=== PATIENT | female | born 1955 | race Caucasian/White ===

== ENCOUNTER 2024-12-15 15:28 | Outpatient (CLI) | payer MEDICARE, SELFPAY ==
--- NOTE | 2024-12-15 15:30 | CT_ITS ---
FINAL REPORT CLINICAL HISTORY: chronic sinusitis FINDINGS: The paranasal sinuses are well aerated. There is no fracture. There are no air-fluid levels. Ostiomeatal units are patent. Mastoid air cells are well aerated. IMPRESSION: Unremarkable. Reviewed, Interpreted and Dictated by Jesse Maldonado MD Transcribed by Heide Lockhart Authenticated and [facility]
--- OUTSIDE RECORDS SUMMARY | 2024-12-15 15:30 | XMS_ITS | Clinical Summary ---
Author Organization [facility] Address [address] [place] [address] Phone Care Team Providers Care Fur Cleaner Name Role Phone LISANDRA RIVERO MD Unavailable [phone] Stephenie MACIAS, Srinivas Joya Unavailable [phone] Neo CALIXTO, Roland Betancourt Primary Care Provider [phone] Reason for Visit and Chief Complaint The Chief Complaint is: low back pain Problems Includes: Problems addressed during this encounter and other active Problems Current Visit Onset Date Resolved Date Provider Conditio n Status Lower Back Pain 11/20/2023 Emile Dougherty PA-C A ctive Last Documented On 4 3:29PM ; [facility] Past Visits Onset Date Resolved Date Provider Condition Status Pain in the Left Foot 12/17/2015 Srinivas Casiano DPM Active Last Documented On 6 9:24AM ; [facility] Joint Pain Left Thumb 10/07/2014 Roland blankenship MD Active Last Documented On 5 2:07PM ; [facility] Plan of Treatment Fall Risk Assessment: This patient has been identified as a fall risk. Balance/gait along with postural blood pressure, vision and home fall hazards have been assessed. Medications have been reviewed, and recommendations made with regard to contributing factors for future falls. Plan of care: Consideration of vitamin D supplementation along with balance and strength training with consideration for formal physical therapy has been discussed with the patient. - Last Documented On 11/20/2023 4:03PM ; [facility] Patient was seen by myself Emile Dougherty PA-C. Patient will follow up 6 weeks we will start with some formal physical therapy with this and see how she progresses - Last Documented On 11/20/2023 4:03PM ; [facility] Pending Tests Order Diagnosis Results Due Ordering P guerita Therapy - Physical Therapy Lumbar Low back pain, unspecified 11/20/23 Emile Dougherty PA-C Last Documented On 4 4:03PM ; [facility] Instructions to patient Intervention and counseling on cessation of tobacco use Last Documented On 4 3:31PM ; [facility] Assessments Includes: Assessments from this encounter Findings Lumbar DDD and degenerative scoliosis - Last Documented On 11/20/2023 4:03PM ; [facility] Instructions Includes: Instructions from this encounter Instructions to patient Intervention and counseling on cessation of tobacco use Last Documented On 4 3:31PM ; [facility] Medical Equipment - Implanted Devices Includes: Current Devices No Medical Equipment Recorded Medications Includes: Medications discussed during this encounter and other current Medications Discontinued / Stopped on this date LISANDRA RIVERO MD on 10/09/2023 Buprenorphine HCl-Naloxone H Cl 8-2 MG Sublingual Tablet Sublingual Provider: LISANDRA RIVERO MD Diagnosis: Last Documented On 4 3:30PM By Navya Sol ; [facility] Percocet 7.5-325 MG Tablet Provider: Chelsie Quiroga MD Diagnosis: Last Documented On 4 3:29PM By Navya Sol ; [facility] Percocet 7.5-325 MG Tablet Provider: Prem Casiano DPM Diagnosis: Last Documented On 4 3:29PM By Navya Sol ; [facility] Premarin 0.625 MG Tablet Provider: Diagnosis: Last Documented On 4 3:29PM By Navya Sol ; [facility] Suboxone 8-2 MG Film Provider: Diagnosis: Last Documented On 4 3:29PM By Navya Sol ; [facility] Pravastatin Sodium 40 MG Tablet Provider: Diagnosis: Last Documented On 4 3:29PM By Navya Sol ; [facility] Triamterene-HCTZ 37.5-25 MG Tablet Provid er: Diagnosis: Last Documented On 4 3:29PM By Navya Sol ; [facility] Current Medications (continue as prescribed) Buprenorphine HCl-Naloxone H Cl 8-2 MG Sublingual Tablet Sublingual 11/05/2023 Provider: LISANDRA RIVERO MD Diagnosis: Last Documented On 4 3:30PM By Navya Sol ; [facility] Ibuprofen 800 MG Oral Tablet 10/27/2023 Provider: LISANDRA RIVERO MD Diagnosis: Last Documented On 4 3:30PM By Navya Sol ; [facility] Fluticasone Propionate 50 MC G/ACT Nasal Suspension 10/25/2023 Provider: LISANDRA RIVERO MD Diagnosis: Last Documented On 4 3:30PM By Navya Sol ; [facility] Triamterene-HCTZ 37.5-25 MG Oral Tablet 10/25/2023 P rovider: LISANDRA RIVERO MD Diagnosis: Last Documented On 4 3:30PM By Navya Sol ; [facility] Medications Administered Includes: Administered Medications from this encounter No Administered Medications Recorded Vital Signs Includes: Vital Signs from this encounter Vital Name 11/20/2023 03:30P Height (in) 63 Weight (lb) 120 Body Mass Index 21.3 Body Surface Area 1.6 Pain Level 7 Note: lc Last Documented: On 11/20/2023 3:30PM ; [facility] Results Includes: Results discussed during this encounter No Results Recorded For Specified Dates History of Present Illness Includes: History of Present Illness from this encounter HPI Isadora Baca is a 68 year old female. - Symptoms giving way, grinding resting, lying down makes the pain better standing on feet makes the pain worse. - Allergy list reviewed - Problem list reviewed - Medication list reviewed - Previous history of new onset pain 1974 Injury is not work related or an automotive accident - Patient pain level from 1-10: 7 - Yes, previous treatment. - History of Home Exercise Patient is here today with complaints of lower back pain she has had this problem for many many years it has been worse in the last 3-4 months. It is worse when she is standing or complains of pain in her lower back in the stabbing feeling in her buttocks. She feels like she is kind of shifted to the left also. She denies any leg pain associated with this no bowel or bladder issues with this no previous back surgery she does take ibuprofen which does help Social History Description Last Updated No recent change in diet 11/20/2023 Last Documented On 4 4:03PM ; [facility] Yes, current smoker. 11/20/2023 Last Documented On 4 4:03PM ; [facility] Exercising regularly 01/10/2017 Last Documented On 4 3:30PM ; [facility] Caffeine use 12/17/2015 Last Documented On 4 3:30PM ; [facility] No recent change in diet 12/17/2015 Last Documented On 4 3:30PM ; [facility] Tobacco use 10/07/2014 Last Documented On 4 3:30PM ; [facility] Current smoker 10/07/2014 Last Documented On 4 3:30PM ; [facility] Not using alcohol 10/07/2014 Last Documented On 4 3:30PM ; [facility] Not using drugs 10/07/2014 Last Documented On 4 3:30PM ; [facility] Smoking Status Unknown Procedures and Surgical History Includes: Procedures from this encounter Procedures Code Diagnosis Performing Provider Service L ocation Service Date intervention and counseling on cessation of tobacco use 4000F Last Documented On 4 3:31PM ; [facility] use of tobacco assessment performed 1000F Last Documented On 4 3:31PM ; [facility] patient screened for future fall risk: documentation of any fall with injury in past year 1100F Last Documented On 4 3:31PM ; [facility] review of medications documented 1160F Last Documented On 4 3:31PM ; [facility] brace Last Documented On 4 3:40PM ; [facility] Surgical History Last Updated History of hysterectomy 10/07/2014 Last Documented On 4 3:30PM ; [facility] Medical History Includes: Medical History addressed during this encounter Description Last Updated Arthritic joint problems 01/10/2017 Last Documented On 4 3:30PM ; [facility] Pulmonary disease 01/10/2017 Last Documented On 4 3:30PM ; [facility] macular hole ~tonsilectomy ~cataract ~br east reduction 12/17/2015 Last Documented On 4 3:30PM ; [facility] Gallbladder disease 12/17/2015 Last Documented On 4 3:30PM ; [facility] History of diverticulitis of colon 10/07 Last Documented On 4 3:30PM ; [facility] Intermittent hypertension 10/07/2014 Last Documented On 4 3:30PM ; [facility] Family History Includes: Family History addressed during this encounter Description Last Updated Maternal history of hypertension /patern al history as well 11/20/2023 Last Documented On 4 3:30PM ; [facility] Maternal history of systemic hypertensio n 11/20/2023 Last Documented On 4 4:03PM ; [facility] Paternal history of family history of ca ncer 11/20/2023 Last Documented On 4 4:03PM ; [facility] Paternal history of family history of ca ncer 11/20/2023 Last Documented On 4 3:30PM ; [facility] Paternal history of family history of he art disease 11/20/2023 Last Documented On 4 4:03PM ; [facility] Paternal history of family history of he art disease 11/20/2023 Last Documented On 4 3:30PM ; [facility] Paternal history of rheumatoid arthritis 11/20/2023 Last Documented On 4 3:30PM ; [facility] Paternal history of rheumatoid arthritis 11/20/2023 Last Documented On 4 4:03PM ; [facility] non-contributory ~ ~arthritis ~asthma ~k idney disease ~stroke 10/07/2014 Last Documented On 4 3:30PM ; [facility] Review of Systems Includes: Review of Systems from this encounter Systemic: Not feeling tired, no recent weight loss, and no recent weight gain. Head: No headache. Sinus pain. Eyes: No vision problems. Cataracts. No Glasses/Contacts and no Glaucoma. Otolaryngeal: No hearing loss and no tinnitus. Cardiovascular: No chest pain or discomfort, no palpitations, no Hypertension, and no High Cholesterol. Pulmonary: No daytime asthma symptoms and no chronic cough. No wheezing. Gastrointestinal: No heartburn and no abdominal pain. No Indigestion, no Acid Reflux, no Peptic Ulcer, no GI Stomach Bleed, and no Ulcers. Endocrine: No hot flashes, no muscle weakness, no Diabetes, no Hypothyroid, and no Hyperthyroid. Hematologic: Easy bleeding. No tendency for easy bruising and no Anemia. Musculoskeletal: Arthritis and lower back pain. No soft tissue swelling and no localized joint pain. Neurological: No dizziness, no convulsions, and no numbness. Psychological: No anxiety, no emotional lability, no depression, and no insomnia. Not crying for no reason. Skin: No dry skin. No Ulcers, no Scars, and no rash. Allergic and Immunologic: No complaint of seasonal allergic reaction. Mental Status Includes: Mental Status from this encounter Description No anxiety Functional Status Includes: Functional Status from this encounter No Functional Status Recorded Physical Exam Includes: Physical Exam from this encounter Allergies Includes: Active Allergies No Known Allergies Encounters Encounter Provider Location Date Check-In Time Check-Out Time Diagnosis Non Physician Specified Emile Dougherty PA-C [facility] 11/20/19 24 3:21PM 3:53PM Insurance Includes: Active Insurance Policies Plan Name Member ID Group # Subscriber Relationship Effect jay Dates 1 - [facility] [id number] Isadora dia Clinical Notes Includes: Clinical Notes from this encounter * Progress note Date Encounter Last Documented by 11/20/2023 Non Physician Specified Last doc umented on 11/20/2023; 4:03 PM, Emile Dougherty PA-C; [facility] Active Problems & Conditions - Joint Pain Left Thumb - Lower Back Pain - Pain in the Left Foot Chief Complaint The Chief Complaint is: Low back pain. Referred Here Referred by PCP. History of Present Illness Isadora Baca is a 68 year old female. - Symptoms giving way, grinding resting, lying down makes the pain better standing on feet makes the pain worse. - Allergy list reviewed - Problem list reviewed - Medication list reviewed - Previous history of new onset pain 1974 Injury is not work related or an automotive accident - Patient pain level from 1-10: 7 - Yes, previous treatment. - History of Home Exercise Patient is here today with complaints of lower back pain she has had this problem for many many years it has been worse in the last 3-4 months. It is worse when she is standing or complains of pain in her lower back in the stabbing feeling in her buttocks. She feels like she is kind of shifted to the left also. She denies any leg pain associated with this no bowel or bladder issues with this no previous back surgery she does take ibuprofen which does help Current Medication - Buprenorphine HCl-Naloxone HCl 8-2 MG Sublingual Tablet Sublingual 28 days, 0 refills - Fluticasone Propionate 50 MCG/ACT Nasal Suspension 30 days, 0 refills - Ibuprofen 800 MG Oral Tablet 30 days, 0 refills - Triamterene-HCTZ 37.5-25 MG Oral Tablet 90 days, 0 refills Past Medical/Surgical History Reported: Medical: Gallbladder disease and joint problems arthritic. Pulmonary disease and intermittent hypertension. Diagnoses: Diverticulitis of colon Macular hole tonsilectomy cataract breast reduction. Surgical: - Hysterectomy Social History Yes, current smoker. Current diet: No recent change in diet. No recent change in diet. Caffeine use: Caffeine use. Tobacco use: Current smoker. Alcohol: Not using alcohol. Drug Use: Not using drugs. Habits: Exercising regularly. Allergies - No Known Allergies Family History Non-contributory arthritis asthma kidney disease stroke Paternal: Cancer Cancer Heart disease Heart disease Rheumatoid arthritis Rheumatoid arthritis Maternal: Systemic hypertension Systemic hypertension /paternal history as well Review Of Systems Systemic: Not feeling tired, no recent weight loss, and no recent weight gain. Head: No headache. Sinus pain. Eyes: No vision problems. Cataracts. No Glasses/Contacts and no Glaucoma. Otolaryngeal: No hearing loss and no tinnitus. Cardiovascular: No chest pain or discomfort, no palpitations, no Hypertension, and no High Cholesterol. Pulmonary: No daytime asthma symptoms and no chronic cough. No wheezing. Gastrointestinal: No heartburn and no abdominal pain. No Indigestion, no Acid Reflux, no Peptic Ulcer, no GI Stomach Bleed, and no Ulcers. Endocrine: No hot flashes, no muscle weakness, no Diabetes, no Hypothyroid, and no Hyperthyroid. Hematologic: Easy bleeding. No tendency for easy bruising and no Anemia. Musculoskeletal: Arthritis and lower back pain. No soft tissue swelling and no localized joint pain. Neurological: No dizziness, no convulsions, and no numbness. Psychological: No anxiety, no emotional lability, no depression, and no insomnia. Not crying for no reason. Skin: No dry skin. No Ulcers, no Scars, and no rash. Allergic and Immunologic: No complaint of seasonal allergic reaction. Physical Findings - Vitals taken 11/20/2023 03:30 pm lc Height 63 in Weight 120 lbs Body Mass Index 21.3 kg/m2 Body Surface Area 1.6 m2 Pain Level 7 She and standing he has a little bit shifted to the left She can not quite bend over and touch her toes She is 5/5 EHL gastrocs quadriceps tibialis anterior strength bilaterally Negative straight leg raise bilaterally 2+ Achilles and patellar reflexes bilaterally Tests Two views lumbar spine shows multilevel degenerative changes and degenerative scoliosis November 20, 2023 Assessment Lumbar DDD and degenerative scoliosis Previous Tests Basic Management Procedures And Services: - Brace Available previous imaging studies were reviewed Available previous history reviewed Therapy - Intervention and counseling on cessation of tobacco use. Plan StartCited - Low back pain, unspecified Therapy/Physical Therapy: Lumbar Instructions: See PT order attached EndCited Fall Risk Assessment: This patient has been identified as a fall risk. Balance/gait along with postural blood pressure, vision and home fall hazards have been assessed. Medications have been reviewed, and recommendations made with regard to contributing factors for future falls. Plan of care: Consideration of vitamin D supplementation along with balance and strength training with consideration for formal physical therapy has been discussed with the patient. Patient was seen by myself Emile Dougherty PA-C. Patient will follow up 6 weeks we will start with some formal physical therapy with this and see how she progresses Notes This dictation was done with voice recognition software and may contain errors and omissions. Practice Management Use of tobacco assessment performed and patient screened for future fall risk documentation of any fall with injury in past year Review of medications documented. Care Team - LISANDRA RIVERO MD
--- OUTSIDE RECORDS SUMMARY | 2024-12-15 15:30 | XMS_ITS ---
Care Plan - [facility] Created on: December 15, 2024 Isadora Baca : 1955 Sex: Female Author Organization [facility] Address [address] [place] [address] Phone Care Team Providers Care Culinary Specialist Name Role Phone JOSEFA CALIXTO, LISANDRA Betancourt Unavailable [phone] Srinivas Casiano DPM Unavailable [phone] Neo CALIXTO, Roland Betancourt Primary Care Provider [phone]
--- OUTSIDE RECORDS SUMMARY | 2024-12-15 15:31 | XMS_ITS ---
Author Organization [facility] Address [address] [place] [address] Phone Care Team Providers Care Building Maintenance Technician Name Role Phone JOSEFA CALIXTO, LISANDRA Betancourt Unavailable [phone] Stephenie MACIAS, Srinivas Joya Unavailable [phone] Neo CALIXTO, Roland Betancourt Primary Care Provider [phone] Problems Includes: Active, inactive, and resolved Problems All Visits Onset Date Resolved Date Provider Condition S tatus Lower Back Pain 11/20/2023 Emile Dougherty PA-C A ctive Last Documented On 4 3:29PM ; [facility] Pain in the Left Foot 12/17/2015 Srinivas Casiano DPM Active Last Documented On 6 9:24AM ; [facility] Joint Pain Left Thumb 10/07/2014 Roland blankenship MD Active Last Documented On 5 2:07PM ; [facility] Plan of Treatment Pending Tests Order Diagnosis Results Due Ordering P rovider Therapy - Physical Therapy Lumbar Low back pain, unspecified 11/20/23 Emile Dougherty PA-C Last Documented On 4 4:03PM ; [facility] Instructions to patient Intervention and counseling on cessation of tobacco use Last Documented On 4 3:31PM ; [facility] Instructions for patient to see pcp for BP Last Documented On 7 11:47AM ; [facility] Intervention and counseling on cessation of tobacco use Last Documented On 7 11:47AM ; [facility] Instructions for patient to see pcp for BP Last Documented On 7 11:27AM ; [facility] Intervention and counseling on cessation of tobacco use Last Documented On 7 11:26AM ; [facility] Intervention and counseling on cessation of tobacco use Last Documented On 7 10:48AM ; [facility] Intervention and counseling on cessation of tobacco use Last Documented On 7 10:41AM ; [facility] Intervention and counseling on cessation of tobacco use Last Documented On 7 9:44AM ; [facility] Intervention and counseling on cessation of tobacco use Last Documented On 7 1:24PM ; [facility] Instructions for patient see pcp about high bp Last Documented On 6 11:04AM ; [facility] Intervention and counseling on cessation of tobacco use Last Documented On 6 11:04AM ; [facility] Instructions for patient see pcp about high bp Last Documented On 6 9:31AM ; [facility] Intervention and counseling on cessation of tobacco use Last Documented On 6 9:31AM ; [facility] Instructions for patient con sult pcp Last Documented On 6 10:47AM ; [facility] Intervention and counseling on cessation of tobacco use Last Documented On 6 10:48AM ; [facility] Instructions for patient con sult pcp Last Documented On 5 2:15PM ; [facility] Intervention and counseling on cessation of tobacco use Last Documented On 5 2:16PM ; [facility] Education and Decision Aids were provided during visit for: Health seminar on smoking ce ssation Last Documented On 7 11:47AM ; [facility] Health seminar on smoking ce ssation Last Documented On 7 11:27AM ; [facility] Health seminar on smoking ce ssation Last Documented On 7 10:41AM ; [facility] Health seminar on smoking ce ssation Last Documented On 7 9:44AM ; [facility] Health seminar on smoking ce ssation Last Documented On 7 1:24PM ; [facility] Health seminar on smoking ce ssation Last Documented On 6 11:04AM ; [facility] Health seminar on smoking ce ssation Last Documented On 6 9:31AM ; [facility] Education and counseling Last Documented On 6 10:47AM ; [facility] Health seminar on smoking ce ssation Last Documented On 6 10:48AM ; [facility] Patient will stop smoking Last Documented On 6 10:47AM ; [facility] Education and counseling Last Documented On 5 2:15PM ; [facility] Patient will stop smoking Last Documented On 5 2:15PM ; [facility] Assessments Includes: Assessments for all patient encounters No Assessments Recorded Instructions Includes: Instructions for all patient encounters Instructions to patient Intervention and counseling on cessation of tobacco use Last Documented On 4 3:31PM ; [facility] Instructions for patient to see pcp for BP Last Documented On 7 11:47AM ; [facility] Intervention and counseling on cessation of tobacco use Last Documented On 7 11:47AM ; [facility] Instructions for patient to see pcp for BP Last Documented On 7 11:27AM ; [facility] Intervention and counseling on cessation of tobacco use Last Documented On 7 11:26AM ; [facility] Intervention and counseling on cessation of tobacco use Last Documented On 7 10:48AM ; [facility] Intervention and counseling on cessation of tobacco use Last Documented On 7 10:41AM ; [facility] Intervention and counseling on cessation of tobacco use Last Documented On 7 9:44AM ; [facility] Intervention and counseling on cessation of tobacco use Last Documented On 7 1:24PM ; [facility] Instructions for patient see pcp about high bp Last Documented On 6 11:04AM ; [facility] Intervention and counseling on cessation of tobacco use Last Documented On 6 11:04AM ; [facility] Instructions for patient see pcp about high bp Last Documented On 6 9:31AM ; [facility] Intervention and counseling on cessation of tobacco use Last Documented On 6 9:31AM ; [facility] Instructions for patient con sult pcp Last Documented On 6 10:47AM ; [facility] Intervention and counseling on cessation of tobacco use Last Documented On 6 10:48AM ; [facility] Instructions for patient con sult pcp Last Documented On 5 2:15PM ; [facility] Intervention and counseling on cessation of tobacco use Last Documented On 5 2:16PM ; [facility] Education and Decision Aids were provided during visit for: Health seminar on smoking ce ssation Last Documented On 7 11:47AM ; [facility] Health seminar on smoking ce ssation Last Documented On 7 11:27AM ; [facility] Health seminar on smoking ce ssation Last Documented On 7 10:41AM ; [facility] Health seminar on smoking ce ssation Last Documented On 7 9:44AM ; [facility] Health seminar on smoking ce ssation Last Documented On 7 1:24PM ; [facility] Health seminar on smoking ce ssation Last Documented On 6 11:04AM ; [facility] Health seminar on smoking ce ssation Last Documented On 6 9:31AM ; [facility] Education and counseling Last Documented On 6 10:47AM ; [facility] Health seminar on smoking ce ssation Last Documented On 6 10:48AM ; [facility] Patient will stop smoking Last Documented On 6 10:47AM ; [facility] Education and counseling Last Documented On 5 2:15PM ; [facility] Patient will stop smoking Last Documented On 5 2:15PM ; [facility] Medical Equipment - Implanted Devices Includes: Current and historical Devices No Medical Equipment Recorded Medications Includes: Current and historical Medications Current Medications (continue as prescribed) Buprenorphine HCl-Naloxone H Cl 8-2 MG Sublingual Tablet Sublingual 11/05/2023 Provider: LISANDRA RIVERO MD Diagnosis: Last Documented On 4 3:30PM By Navya Sol ; [facility] Ibuprofen 800 MG Oral Tablet 10/27/2023 Provider: LISANDRA RIVERO MD Diagnosis: Last Documented On 4 3:30PM By Navya Sol ; [facility] Fluticasone Propionate 50 MC G/ACT Nasal Suspension 10/25/2023 Provider: LISANDRA RIVERO MD Diagnosis: Last Documented On 4 3:30PM By Navya Sol ; [facility] Triamterene-HCTZ 37.5-25 MG Oral Tablet 10/25/2023 P rovider: LISANDRA RIVERO MD Diagnosis: Last Documented On 4 3:30PM By Navya Sol ; [facility] Past Medications on file Buprenorphine HCl-Naloxone H Cl 8-2 MG Sublingual Tablet Sublingual 10/09/2023 - 11/20/2023 Provider: LISANDRA RIVERO MD Diagnosis: Last Documented On 4 3:30PM By Navya Sol ; [facility] Percocet 7.5-325 MG Tablet 10/23/2016 - 11/20/2023 Pro vider: Armani Quiroga MD Diagnosis: 1-2 po q 4-6h Last Documented On 4 3:29PM By Navya Sol ; [facility], [facility] Percocet 7.5-325 MG Tablet 10/18/2016 - 11/20/2023 Pro vider: Srinivas Casiano DPPorfirio Diagnosis: 1-2 po q 4-6h Last Documented On 4 3:29PM By Navya Sol ; [facility], [facility] Premarin 0.625 MG Tablet 12/17/2015 - 11/20/2023 Provi martinez: Diagnosis: Last Documented On 4 3:29PM By Navya Sol ; [facility] Suboxone 8-2 MG Film 12/17/2015 - 11/20/2023 Provider: Diagnosis: Last Documented On 4 3:29PM By Navya Sol ; [facility] Pravastatin Sodium 40 MG Tablet 12/17/2015 - 4 Provider: Diagnosis: Last Documented On 4 3:29PM By Navya Sol ; [facility] Triamterene-HCTZ 37.5-25 MG Tablet 12/17/2015 - 2023 Provider: Diagnosis: Last Documented On 4 3:29PM By Navya Sol ; [facility] Pravastatin Sodium 10 MG Tablet 10/07/2014 - 6 Provider: Diagnosis: Last Documented On 6 9:24AM By Dinora Case ; [facility], [facility] Tylenol 325 MG Tablet 10/07/2014 - 12/17/2015 Provider : Diagnosis: Last Documented On 6 9:28AM By Dinora Case ; [facility], [facility] Ibuprofen 200 MG Tablet 10/07/2014 - 12/17/2015 Pr ovider: Diagnosis: Last Documented On 6 9:28AM By Dinora Case ; [facility], [facility] Medications Administered Includes: Administered Medications in patient's chart No Administered Medications Recorded Results Includes: Results from 12/16/2023 through 12/15/2024 No Results Recorded For Specified Dates History of Present Illness History of Present Illness not supported for this document type No History of Present Illness Recorded Social History Description Last Updated No recent change in diet 11/20/2023 Last Documented On 4 4:03PM ; [facility], [facility] Yes, current smoker. 11/20/2023 Last Documented On 4 4:03PM ; [facility], [facility] Exercising regularly 01/10/2017 Last Documented On 7 9:23AM ; [facility], [facility] Caffeine use 12/17/2015 Last Documented On 6 3:29PM ; [facility] No recent change in diet 12/17/2015 Last Documented On 6 3:29PM ; [facility] Tobacco use 10/07/2014 Last Documented On 5 10:02AM ; [facility] Smoking status : Current everyday smoker 10/07/2014 Last Documented On 5 10:02AM ; [facility] Current smoker 10/07/2014 Last Documented On 5 10:02AM ; [facility] Not using alcohol 10/07/2014 Last Documented On 5 10:02AM ; [facility] Not using drugs 10/07/2014 Last Documented On 5 10:02AM ; [facility] Procedures and Surgical History Surgical History Last Updated History of hysterectomy 10/07/2014 Last Documented On 5 10:02AM ; [facility] Medical History Includes: Medical History in patient's chart Description Last Updated Arthritic joint problems 01/10/2017 Last Documented On 7 9:23AM ; [facility] Pulmonary disease 01/10/2017 Last Documented On 7 9:23AM ; [facility] macular hole ~tonsilectomy ~cataract ~br east reduction 12/17/2015 Last Documented On 6 3:29PM ; [facility] Gallbladder disease 12/17/2015 Last Documented On 6 3:29PM ; [facility] History of diverticulitis of colon 10/07 Last Documented On 5 10:02AM ; [facility] Intermittent hypertension 10/07/2014 Last Documented On 5 10:02AM ; [facility] Family History Includes: Family History in patient's chart Description Last Updated Maternal history of systemic hypertensio n 11/20/2023 Last Documented On 4 4:03PM ; [facility] Paternal history of family history of ca ncer 11/20/2023 Last Documented On 4 4:03PM ; [facility] Paternal history of family history of he art disease 11/20/2023 Last Documented On 4 4:03PM ; [facility], [facility] Paternal history of rheumatoid arthritis 11/20/2023 Last Documented On 4 4:03PM ; [facility], [facility] non-contributory ~ ~arthritis ~asthma ~k idney disease ~stroke 10/07/2014 Last Documented On 5 10:02AM ; [facility], [facility] Family history of cancer 10/07/2014 Last Documented On 5 10:02AM ; [facility], [facility] Family history of heart disease 10/07/19 15 Last Documented On 5 10:02AM ; [facility], [facility] Family history of hypertension 5 Last Documented On 5 10:02AM ; [facility], [facility] Review of Systems Review of Systems not supported for this document type No Review of Systems Recorded Mental Status Description No anxiety Functional Status No Functional Status Recorded Physical Exam Physical Exam not supported for this document type No Physical Exam Recorded Allergies Includes: Active, inactive, and resolved Allergies No Known Allergies Insurance Includes: Active Insurance Policies Plan Name Member ID Group # Subscriber Relationship Effect jay Dates 1 - [facility] [id number] Isadora Joya niko Clinical Notes Includes: Signed Clinical Notes starting from 08/17/2022 No Clinical Notes Recorded
--- OUTSIDE RECORDS SUMMARY | 2024-12-15 15:31 | XMS_ITS | Clinical Summary ---
Author Organization [facility] Address [address] [place] [address] Phone Care Team Providers Care Farm Marketer Name Role Phone LISANDRA RIVERO MD Unavailable [phone] Stephenie MACIAS, Srinivas Joya Unavailable [phone] Neo CALIXTO, Roland Betancourt Primary Care Provider [phone] Reason for Visit and Chief Complaint The Chief Complaint is: left foot pain Problems Includes: Problems addressed during this encounter and other active Problems Current Visit Onset Date Resolved Date Provider Conditio n Status Lower Back Pain 11/20/2023 Emile Dougherty PA-C A ctive Last Documented On 4 3:29PM ; [facility] Past Visits Onset Date Resolved Date Provider Condition Status Pain in the Left Foot 12/17/2015 Srinivas Casiano DPM Active Last Documented On 6 9:24AM ; [facility], [facility] Joint Pain Left Thumb 10/07/2014 Roland blankenship MD Active Last Documented On 5 2:07PM ; [facility], [facility] Plan of Treatment We will remove her sutures today. Steri-Strips are applied. She was redressed. We'll have her partial weightbearing as tolerated in her boot and she will follow back up with Dr. Casiano in 2 weeks - Last Documented On 12/06/2016 9:42AM ; [facility], [facility] Instructions to patient Intervention and counseling on cessation of tobacco use Last Documented On 7 10:41AM ; [facility], [facility] Education and Decision Aids were provided during visit for: Health seminar on smoking ce ssation Last Documented On 7 10:41AM ; [facility] Assessments Includes: Assessments from this encounter Findings Status post bunionectomy procedure left foot with midfoot exostectomy left, doing well. - Last Documented On 12/06/2016 9:42AM ; [facility] Instructions Includes: Instructions from this encounter Instructions to patient Intervention and counseling on cessation of tobacco use Last Documented On 7 10:41AM ; [facility] Education and Decision Aids were provided during visit for: Health seminar on smoking ce ssation Last Documented On 7 10:41AM ; [facility] Medical Equipment - Implanted Devices Includes: Current Devices No Medical Equipment Recorded Medications Includes: Medications discussed during this encounter and other current Medications Current Medications (continue as prescribed) Buprenorphine HCl-Naloxone H Cl 8-2 MG Sublingual Tablet Sublingual 11/05/2023 Provider: LISANDRA RIVERO MD Diagnosis: Last Documented On 4 3:30PM By Navya [facility], [facility] Ibuprofen 800 MG Oral Tablet 10/27/2023 Provider: LISANDRA RIVERO MD Diagnosis: Last Documented On 4 3:30PM By Navya Sol ; [facility] Fluticasone Propionate 50 MC G/ACT Nasal Suspension 10/25/2023 Provider: LISANDRA RIVERO MD Diagnosis: Last Documented On 4 3:30PM By Navya Sol ; [facility] Triamterene-HCTZ 37.5-25 MG Oral Tablet 10/25/2023 Luis dexter: LISANDRA RIVERO MD Diagnosis: Last Documented On 4 3:30PM By Navya Sol ; [facility] Medications Administered Includes: Administered Medications from this encounter No Administered Medications Recorded Vital Signs Includes: Vital Signs from this encounter Vital Name 11/01/2016 10:41A Height (in) 63 Weight (lb) 120 Body Mass Index (kg/m2) 21.3 Body Surface Area (m2) 1.6 Note: mjk Last Documented: On 11/01/2016 10:41A M ; [facility] Results Includes: Results discussed during this encounter No Results Recorded For Specified Dates History of Present Illness Includes: History of Present Illness from this encounter HPI Isadora Baca is a 61 year old female. - Medication list reviewed with patient. She is seen in follow-up of her left bunionectomy. She is doing well. No fevers, chills or night sweats Social History Description Last Updated Not exercising regularly 01/10/2017 Last Documented On 7 10:41AM ; [facility] Caffeine use 12/17/2015 Last Documented On 7 10:41AM ; [facility] No recent change in diet 12/17/2015 Last Documented On 7 10:41AM ; [facility] Tobacco use 10/07/2014 Last Documented On 7 10:41AM ; [facility] Smoking status : Current everyday smoker 10/07/2014 Last Documented On 7 10:41AM ; [facility] Current smoker 10/07/2014 Last Documented On 7 10:41AM ; [facility] Not using alcohol 10/07/2014 Last Documented On 7 10:41AM ; [facility] Not using drugs 10/07/2014 Last Documented On 7 10:41AM ; [facility] Procedures and Surgical History Includes: Procedures from this encounter Procedures Code Diagnosis Performing Provider Service L ocation Service Date intervention and counseling on cessation of tobacco use 4000F Last Documented On 7 10:41AM ; [facility] Clinical summary provided to patient Last Documented On 7 10:41AM ; [facility] Surgical History Last Updated History of hysterectomy 10/07/2014 Last Documented On 7 10:41AM ; [facility] Medical History Includes: Medical History addressed during this encounter Description Last Updated macular hole ~tonsilectomy ~cataract ~br east reduction 12/17/2015 Last Documented On 7 10:41AM ; [facility] Gallbladder disease 12/17/2015 Last Documented On 7 10:41AM ; [facility] History of diverticulitis of colon 10/07 Last Documented On 7 10:41AM ; [facility] Intermittent hypertension 10/07/2014 Last Documented On 7 10:41AM ; [facility], [facility] Family History Includes: Family History addressed during this encounter Description Last Updated Maternal history of hypertension /patern al history as well 11/20/2023 Last Documented On 7 10:41AM ; [facility], [facility] Paternal history of family history of ca ncer 11/20/2023 Last Documented On 7 10:41AM ; [facility], [facility] Paternal history of family history of he art disease 11/20/2023 Last Documented On 7 10:41AM ; [facility], [facility] Paternal history of rheumatoid arthritis 11/20/2023 Last Documented On 7 10:41AM ; [facility], [facility] non-contributory ~ ~arthritis ~asthma ~k idney disease ~stroke 10/07/2014 Last Documented On 7 10:41AM ; [facility], [facility] Family history of cancer 10/07/2014 Last Documented On 7 10:41AM ; [facility], [facility] Family history of heart disease 10/07/19 15 Last Documented On 7 10:41AM ; [facility], [facility] Family history of hypertension 5 Last Documented On 7 10:41AM ; [facility], [facility] Review of Systems Includes: Review of Systems from this encounter Systemic: Not feeling tired (fatigue), no recent weight loss, and no recent weight gain. No edema. Head: No headache. Sinus pain. No sinus pain. Eyes: No vision problems and no glaucomatous visual field defect. Otolaryngeal: No hearing loss and no tinnitus. No nasal symptoms. Cardiovascular: No chest pain or discomfort and no palpitations. Pulmonary: No daytime asthma symptoms, no cough, and no chronic cough. No wheezing. Gastrointestinal: No heartburn and no abdominal pain. Endocrine: No hot flashes and no muscle weakness. Hematologic: No easy bleeding and no tendency for easy bruising. Musculoskeletal: No lower back pain. No soft tissue swelling. Pain localized to one or more joints. Neurological: No dizziness, no convulsions, and no numbness. Psychological: No anxiety, no emotional lability, no depression, and no insomnia. Not crying for no reason. Skin: No dry skin, no rash, and no ulcers. Allergic and Immunologic: Complaint of seasonal allergic reaction. Mental Status Includes: Mental Status from this encounter Description No anxiety Functional Status Includes: Functional Status from this encounter No Functional Status Recorded Physical Exam Includes: Physical Exam from this encounter Allergies Includes: Active Allergies No Known Allergies Encounters Encounter Provider Location Date Check-In Time Check- Out Time Diagnosis Post Op Julian Malloy MD [facility] 7 10:34AM 10:49AM Insurance Includes: Active Insurance Policies Plan Name Member ID Group # Subscriber Relationship Effect jay Dates 1 - [facility] [id number] Isadora Joya [facility] Clinical Notes Includes: Clinical Notes from this encounter No Clinical Notes Recorded
--- OUTSIDE RECORDS SUMMARY | 2024-12-15 15:31 | XMS_ITS | Clinical Summary ---
Author Organization [facility] Address [address] [place] [address] Phone Care Team Providers Care Running Specialist Name Role Phone LISANDRA RIVERO MD Unavailable [phone] Srinivas Casiano DPM Unavailable [phone] Neo CALIXTO, Roland Betancourt Primary Care Provider [phone] Reason for Visit and Chief Complaint The Chief Complaint is: status post bunionectomy with midfoot exostectomy Problems Includes: Problems addressed during this encounter and other active Problems Current Visit Onset Date Resolved Date Provider Conditio n Status Lower Back Pain 11/20/2023 Emile Dougherty PA-C A ctive Last Documented On 4 3:29PM ; [facility] Past Visits Onset Date Resolved Date Provider Condition Status Pain in the Left Foot 12/17/2015 Srinivas Casiano DPM Active Last Documented On 6 9:24AM ; [facility] Joint Pain Left Thumb 10/07/2014 Roland blankenship MD Active Last Documented On 5 2:07PM ; [facility] Plan of Treatment She has done well surgically. We did reapply Coban for compression. She will continue that as she transitions from her boot to a good supportive tennis shoe. We did dispense a bunion spacer. I plan to ask her to continue in the surgical shoe, weightbearing as tolerated for at least 2 weeks and then on the other shoes as tolerated from there. I will see her back in 6 weeks with an x-ray of the left foot. - Last Documented On 07/16/2017 12:01PM ; [facility] Instructions to patient Instructions for patient to see pcp for BP Last Documented On 7 11:27AM ; [facility] Intervention and counseling on cessation of tobacco use Last Documented On 7 11:26AM ; [facility] Education and Decision Aids were provided during visit for: Health seminar on smoking ce ssation Last Documented On 7 11:27AM ; [facility] Assessments Includes: Assessments from this encounter Findings Status post bunionectomy, left foot, and status post midfoot exostectomy, left foot, doing well - Last Documented On 07/16/2017 12:01PM ; [facility] Instructions Includes: Instructions from this encounter Instructions to patient Instructions for patient to see pcp for BP Last Documented On 7 11:27AM ; [facility] Intervention and counseling on cessation of tobacco use Last Documented On 7 11:26AM ; [facility] Education and Decision Aids were provided during visit for: Health seminar on smoking ce ssation Last Documented On 7 11:27AM ; [facility] Medical Equipment - Implanted Devices Includes: Current Devices No Medical Equipment Recorded Medications Includes: Medications discussed during this encounter and other current Medications Current Medications (continue as prescribed) Buprenorphine HCl-Naloxone H Cl 8-2 MG Sublingual Tablet Sublingual 11/05/2023 Provider: LISANDRA RIVERO MD Diagnosis: Last Documented On 4 3:30PM By Navya Sol ; [facility] Ibuprofen 800 MG Oral Tablet 10/27/2023 Provider: LISANDRA RIVERO MD Diagnosis: Last Documented On 4 3:30PM By Navya Sol ; [facility] Fluticasone Propionate 50 MC G/ACT Nasal Suspension 10/25/2023 Provider: LISANDRA RIVERO MD Diagnosis: Last Documented On 4 3:30PM By Navya Sol ; [facility] Triamterene-HCTZ 37.5-25 MG Oral Tablet 10/25/2023 Luis dexter: LISANDRA RIVERO MD Diagnosis: Last Documented On 4 3:30PM By Navya Sol ; [facility] Medications Administered Includes: Administered Medications from this encounter No Administered Medications Recorded Vital Signs Includes: Vital Signs from this encounter Vital Name 11/29/2016 11:27A Blood Pressure Sitting (mmHg) 141/87 Pulse Rate-Sitting (bpm) 84 Height (in) 63 Weight (lb) 120 Body Mass Index (kg/m2) 21.3 Body Surface Area (m2) 1.6 Note: alb Last Documented: On 11/29/2016 11:34A M ; [facility] Results Includes: Results discussed during this encounter No Results Recorded For Specified Dates History of Present Illness Includes: History of Present Illness from this encounter HPI Isadora Baca is a 61 year old female. - Medication list reviewed with patient. She has done well with her bunionectomy procedure and midfoot exostectomy. She has no particular complaints. She is wearing her immobilizing boot. She is ambulatory. She has no pain. She is pleased with the appearance of her foot. She does still have some swelling toward the end of a busy day. Social History Description Last Updated Not exercising regularly 01/10/2017 Last Documented On 7 11:26AM ; [facility] Caffeine use 12/17/2015 Last Documented On 7 11:26AM ; [facility] No recent change in diet 12/17/2015 Last Documented On 7 11:26AM ; [facility] Tobacco use 10/07/2014 Last Documented On 7 11:26AM ; [facility] Smoking status : Current everyday smoker 10/07/2014 Last Documented On 7 11:26AM ; [facility] Current smoker 10/07/2014 Last Documented On 7 11:26AM ; [facility] Not using alcohol 10/07/2014 Last Documented On 7 11:26AM ; [facility] Not using drugs 10/07/2014 Last Documented On 7 11:26AM ; [facility] Procedures and Surgical History Includes: Procedures from this encounter Procedures Code Diagnosis Performing Provider Service L ocation Service Date education and instructions Last Documented On 7 11:26AM ; [facility] intervention and counseling 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 Last Documented On 7 11:26AM ; [facility] Clinical summary provided to patient Last Documented On 7 11:26AM ; [facility] Surgical History Last Updated History of hysterectomy 10/07/2014 Last Documented On 7 11:26AM ; [facility] Medical History Includes: Medical History addressed during this encounter Description Last Updated macular hole ~tonsilectomy ~cataract ~br east reduction 12/17/2015 Last Documented On 7 11:26AM ; [facility] Gallbladder disease 12/17/2015 Last Documented On 7 11:26AM ; [facility] History of diverticulitis of colon 10/07 Last Documented On 7 11:26AM ; [facility] Intermittent hypertension 10/07/2014 Last Documented On 7 11:26AM ; [facility] Family History Includes: Family History addressed during this encounter Description Last Updated Maternal history of hypertension /patern al history as well 11/20/2023 Last Documented On 7 11:26AM ; [facility] Paternal history of family history of ca ncer 11/20/2023 Last Documented On 7 11:26AM ; [facility] Paternal history of family history of he art disease 11/20/2023 Last Documented On 7 11:26AM ; [facility] Paternal history of rheumatoid arthritis 11/20/2023 Last Documented On 7 11:26AM ; [facility] non-contributory ~ ~arthritis ~asthma ~k idney disease ~stroke 10/07/2014 Last Documented On 7 11:26AM ; [facility] Family history of cancer 10/07/2014 Last Documented On 7 11:26AM ; [facility] Family history of heart disease 10/07/19 15 Last Documented On 7 11:26AM ; [facility] Family history of hypertension 5 Last Documented On 7 11:26AM ; [facility] Review of Systems Includes: Review of [...] Time Check- Out Time Diagnosis Post Op Srinivas Casiano DPM [facility] 7 11:17AM 11:52AM Insurance Includes: Active Insurance Policies Plan Name Member ID Group # Subscriber Relationship Effect jay Dates - [facility] [id number] Isadora dia Clinical Notes Includes: Clinical Notes from this encounter No Clinical Notes Recorded
--- OUTSIDE RECORDS SUMMARY | 2024-12-15 15:31 | XMS_ITS | Clinical Summary ---
Author Organization [facility] Address [address] [place] [address] Phone Care Team Providers Care Clinical Statistical Programmer Name Role Phone LISANDRA RIVERO MD Unavailable [phone] Stephenie MACIAS, Srinivas Joya Unavailable [phone] Neo CALIXTO, Roland Betancourt Primary Care Provider [phone] Reason for Visit and Chief Complaint The Chief Complaint is: Four-week status post bunionectomy with midfoot exostectomy Problems Includes: Problems addressed during this encounter and other active Problems Current Visit Onset Date Resolved Date Provider Conditio n Status Lower Back Pain 11/20/2023 Emile Dougherty PA-C A ctive Last Documented On 4 3:29PM ; [facility] Past Visits Onset Date Resolved Date Provider Condition Status Pain in the Left Foot 12/17/2015 Srinivas Casiano DPM Active Last Documented On 6 9:24AM ; [facility] Joint Pain Left Thumb 10/07/2014 Roland blankenship MD Active Last Documented On 5 2:07PM ; [facility] Plan of Treatment She seems to do well with her bunionectomy and midfoot exostectomy. She has no major complaints. We did reapply compression bandage with the hallux splinted. She may get this wet in the shower. She will re-create the bandage with a hallux splint. She will continue with the immobilizing boot. She will bear weight to tolerance. She will utilize the knee scooter as needed. I will see her back in 2 weeks with an x-ray of the foot. - Last Documented On 07/16/2017 10:28AM ; [facility] Instructions to patient Intervention and counseling on cessation of tobacco use Last Documented On 7 10:48AM ; [facility] Assessments Includes: Assessments from this encounter Findings Status post bunionectomy, left foot, and status post midfoot exostectomy, left foot, doing well - Last Documented On 07/16/2017 10:28AM ; [facility] Instructions Includes: Instructions from this encounter Instructions to patient Intervention and counseling on cessation of tobacco use Last Documented On 7 10:48AM ; [facility] Medical Equipment - Implanted Devices Includes: Current Devices No Medical Equipment Recorded Medications Includes: Medications discussed during this encounter and other current Medications Current Medications (continue as prescribed) Buprenorphine HCl-Naloxone H Cl 8-2 MG Sublingual Tablet Sublingual 11/05/2023 Provider: LISANDRA RIVERO MD Diagnosis: Last Documented On 4 3:30PM By Navya Sol ; [facility] Ibuprofen 800 MG Oral Tablet 10/27/2023 Provider: LISANDRA RIVERO MD Diagnosis: Last Documented On 4 3:30PM By Navya Sol ; [facility] Fluticasone Propionate 50 MC G/ACT Nasal Suspension 10/25/2023 Provider: LISANDRA RIVERO MD Diagnosis: Last Documented On 4 3:30PM By Navya Sol ; [facility] Triamterene-HCTZ 37.5-25 MG Oral Tablet 10/25/2023 P romargoder: LISANDRA RIVERO MD Diagnosis: Last Documented On 4 3:30PM By Navya Sol ; [facility] Medications Administered Includes: Administered Medications from this encounter No Administered Medications Recorded Vital Signs Includes: Vital Signs from this encounter Vital Name 11/15/2016 10:48A Blood Pressure Sitting R 142/81 Pulse Rate-Sitting (bpm) 88 Height (in) 63 Weight (lb) 120 Body Mass Index (kg/m2) 21.3 Body Surface Area (m2) 1.6 Note: valerie Last Documented: On 11/15/2016 10:49A M ; [facility] Results Includes: Results discussed during this encounter No Results Recorded For Specified Dates History of Present Illness Includes: History of Present Illness from this encounter HPI Isadora Baca is a 61 year old female. - Medication list reviewed with patient. This patient returns for a four-week follow-up of her bunionectomy procedure with midfoot exostectomy. She has done well with this. She has no particular complaints. She feels as though things are coming along just fine. She is utilizing her boot and her knee scooter. She denies nausea, vomiting, fever or chills. She denies calf pain, chest pain, shortness of breath. She does not complain of pain. Social History Description Last Updated Not exercising regularly 01/10/2017 Last Documented On 7 10:47AM ; [facility] Caffeine use 12/17/2015 Last Documented On 7 10:47AM ; [facility] No recent change in diet 12/17/2015 Last Documented On 7 10:47AM ; [facility] Tobacco use 10/07/2014 Last Documented On 7 10:47AM ; [facility] Smoking status : Current everyday smoker 10/07/2014 Last Documented On 7 10:47AM ; [facility] Current smoker 10/07/2014 Last Documented On 7 10:47AM ; [facility] Not using alcohol 10/07/2014 Last Documented On 7 10:47AM ; [facility] Not using drugs 10/07/2014 Last Documented On 7 10:47AM ; [facility] Procedures and Surgical History Includes: Procedures from this encounter Procedures Code Diagnosis Performing Provider Service L ocation Service Date education and instructions Last Documented On 7 10:48AM ; [facility] intervention and counseling on cessation of toba account manager trainee use 4000F Last Documented On 7 10:48AM ; [facility] Clinical summary provided to patient Last Documented On 7 10:48AM ; [facility] Surgical History Last Updated History of hysterectomy 10/07/2014 Last Documented On 7 10:47AM ; [facility] Medical History Includes: Medical History addressed during this encounter Description Last Updated macular hole ~tonsilectomy ~cataract ~br east reduction 12/17/2015 Last Documented On 7 10:47AM ; [facility] Gallbladder disease 12/17/2015 Last Documented On 7 10:47AM ; [facility] History of diverticulitis of colon 10/07 Last Documented On 7 10:47AM ; [facility] Intermittent hypertension 10/07/2014 Last Documented On 7 10:47AM ; [facility] Family History Includes: Family History addressed during this encounter Description Last Updated Maternal history of hypertension /patern al history as well 11/20/2023 Last Documented On 7 10:47AM ; [facility] Paternal history of family history of ca ncer 11/20/2023 Last Documented On 7 10:47AM ; [facility] Paternal history of family history of he art disease 11/20/2023 Last Documented On 7 10:47AM ; [facility] Paternal history of rheumatoid arthritis 11/20/2023 Last Documented On 7 10:47AM ; [facility] non-contributory ~ ~arthritis ~asthma ~k idney disease ~stroke 10/07/2014 Last Documented On 7 10:47AM ; [facility] Family history of cancer 10/07/2014 Last Documented On 7 10:47AM ; [facility] Family history of heart disease 10/07/19 15 Last Documented On 7 10:47AM ; [facility] Family history of hypertension 5 Last Documented On 7 10:47AM ; [facility] Review of Systems Includes: Review of [...] Out Time Diagnosis [facility] 7 10:41AM 11:07AM Insurance Includes: Active Insurance Policies Plan Name Member ID Group # Subscriber Relationship Effect jay Dates - [facility] [id number] Isadora dia Clinical Notes Includes: Clinical Notes from this encounter No Clinical Notes Recorded
--- OUTSIDE RECORDS SUMMARY | 2024-12-15 15:31 | XMS_ITS | Clinical Summary ---
Author Organization [facility] , [facility] Address [address] [place] [address] Phone Care Team Providers Care Stain Maker Name Role Phone LISANDRA RIVERO MD Unavailable [phone] Srinivas Casiano DPM Unavailable [phone] [...] Documented On 4 3:29PM ; [facility] Past Visits Onset Date Resolved Date Provider Condition Status Pain in the Left Foot 12/17/2015 Srinivas Casiano DPM Active Last Documented On 6 9:24AM ; [facility] Joint Pain Left Thumb 10/07/2014 Roland blankenship MD Active Last Documented On 5 2:07PM ; [facility], [facility] Plan of Treatment This patient has done well with her surgical correction. She has no complaints. She is back to wearing regular shoes. She has recovered from this nicely. She has no complaints that she presented to me with. We will release her from surgical care. She will contact me with questions or concerns. - Last Documented On 07/17/2017 9:23AM ; [facility] Instructions to patient Instructions for patient to see pcp for BP Last Documented On 7 11:47AM ; [facility] Intervention and counseling on cessation of tobacco use Last Documented On 7 11:47AM ; [facility] Education and Decision Aids were provided during visit for: Health seminar on smoking ce ssation Last Documented On 7 11:47AM ; [facility] Assessments Includes: Assessments from this encounter Findings Status post bunionectomy, left foot, and status post midfoot exostectomy, left foot, doing well - Last Documented On 07/17/2017 9:23AM ; [facility] Instructions Includes: Instructions from this encounter Instructions to patient Instructions for patient to see pcp for BP Last Documented On 7 11:47AM ; [facility] Intervention and counseling on cessation of tobacco use Last Documented On 7 11:47AM ; [facility] Education and Decision Aids were provided during visit for: Health seminar on smoking ce ssation Last Documented On 7 11:47AM ; [facility] Medical Equipment - Implanted Devices Includes: Current Devices No Medical Equipment Recorded Medications Includes: Medications discussed during this encounter and other current Medications Current Medications (continue as prescribed) Buprenorphine HCl-Naloxone H Cl 8-2 MG Sublingual Tablet Sublingual 11/05/2023 Provider: LISANDRA RIVERO MD Diagnosis: Last Documented On 4 3:30PM By Navya Sol ; [facility] Ibuprofen 800 MG Oral Tablet 10/27/2023 Provider: LISANDRA RIVERO MD Diagnosis: Last Documented On 4 3:30PM By Navya Sol ; [facility] Fluticasone Propionate 50 MC G/ACT Nasal Suspension 10/25/2023 Provider: LISANDRA RIVERO MD Diagnosis: Last Documented On 4 3:30PM By Navya Sol ; [facility] Triamterene-HCTZ 37.5-25 MG Oral Tablet 10/25/2023 Luis dexter: LISANDRA RIVERO MD Diagnosis: Last Documented On 4 3:30PM By Navya Sol ; [facility] Medications Administered Includes: Administered Medications from this encounter No Administered Medications Recorded Vital Signs Includes: Vital Signs from this encounter Vital Name 01/10/2017 11:51A Blood Pressure Sitting (mmHg) 135/79 Pulse Rate-Sitting (bpm) 79 Height (in) 63 Weight (lb) 125 Body Mass Index (kg/m2) 22.1 Body Surface Area (m2) 1.6 Note: am Last Documented: On 01/10/2017 11:54A M ; [facility], [facility] Results Includes: Results discussed during this encounter No Results Recorded For Specified Dates History of Present Illness Includes: History of Present Illness from this encounter HPI Isadora Baca is a 61 year old female. - Medication list reviewed with patient. This patient is here for evaluation of her left foot surgery. She is now approximately 3 months postop. She does well with her bunionectomy as well as midfoot exostectomy. She is wearing a variety of shoes. She is fully ambulatory. She has no complaints of pain. She does have a little swelling toward the end of a busy day. She is pleased with her surgical outcome. Social History Description Last Updated Exercising regularly 01/10/2017 Last Documented On 7 9:23AM ; [facility] Caffeine use 12/17/2015 Last Documented On 7 11:46AM ; [facility], [facility] No recent change in diet 12/17/2015 Last Documented On 7 11:46AM ; [facility], [facility] Tobacco use 10/07/2014 Last Documented On 7 11:46AM ; [facility], [facility] Smoking status : Current everyday smoker 10/07/2014 Last Documented On 7 11:46AM ; [facility] Current smoker 10/07/2014 Last Documented On 7 11:46AM ; [facility] Not using alcohol 10/07/2014 Last Documented On 7 11:46AM ; [facility] Not using drugs 10/07/2014 Last Documented On 7 11:46AM ; [facility], [facility] Procedures and Surgical History Includes: Procedures from this encounter Procedures Code Diagnosis Performing Provider Service L ocation Service Date education and instructions Last Documented On 7 11:47AM ; [facility] intervention and counseling on 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 Medical History Includes: Medical History addressed during this encounter Description Last Updated Arthritic joint problems 01/10/2017 Last Documented On 7 9:23AM ; [facility] Pulmonary disease 01/10/2017 Last Documented On 7 9:23AM ; [facility] macular hole ~tonsilectomy ~cataract ~br east reduction 12/17/2015 Last Documented On 7 11:46AM ; [facility] Gallbladder disease 12/17/2015 Last Documented On 7 11:46AM ; [facility] History of diverticulitis of colon 10/07 Last Documented On 7 11:46AM ; [facility] Intermittent hypertension 10/07/2014 Last Documented On 7 11:46AM ; [facility] Family History Includes: Family History addressed during this encounter Description Last Updated Maternal history of hypertension /patern al history as well 11/20/2023 Last Documented On 7 11:46AM ; [facility] Paternal history of family history of ca ncer 11/20/2023 Last Documented On 7 11:46AM ; [facility] Paternal history of family history of he art disease 11/20/2023 Last Documented On 7 11:46AM ; [facility] Paternal history of rheumatoid arthritis 11/20/2023 Last Documented On 7 11:46AM ; [facility] non-contributory ~ ~arthritis ~asthma ~k idney disease ~stroke 10/07/2014 Last Documented On 7 11:46AM ; [facility] Family history of cancer 10/07/2014 Last Documented On 7 11:46AM ; [facility] Family history of heart disease 10/07/19 Last Documented On 7 11:46AM ; [facility] Family history of hypertension 5 Last Documented On 7 11:46AM ; [facility] Review of Systems Includes: Review of [...] and no tendency for easy bruising. Musculoskeletal: Lower back pain. No soft tissue swelling. Pain [...] Date Check-In Time Check- Out Time Diagnosis Follow Up Srinivas Casiano DPM [facility] 7 11:19AM 12:12PM Insurance Includes: Active Insurance Policies Plan Name Member ID Group # Subscriber Relationship Effect jay Dates - [facility] [id number] Isadora dia Clinical Notes Includes: Clinical Notes from this encounter No Clinical Notes Recorded
== END 2024-12-15 23:59 | disposition home or self-care (01) ==
LOC: RAD 15:28
PROVIDERS: PCP Family Medicine; Visit Provider Nurse Practitioner
DX: J34.89 Other specified disorders of nose and nasal sinuses (principal); J32.9 Chronic sinusitis, unspecified
CPT/HCPCS: 70486